=== PATIENT | male | born 1965 | race Asian ===

== ENCOUNTER 2020-06-03 04:00 | Inpatient (IN) | payer OTHER ==
[~2020-06-03] VITALS: Ht 175.3 cm; Wt 96.8 kg
[2020-06-03 04:00] VITALS: BP 124/57; TEMP 102.1
[2020-06-03 04:30] VITALS: BP 111/72
[2020-06-03 04:42] LABS: PLATELET COUNT 194 K/uL (142-355)
[2020-06-03 04:55] LABS: POTASSIUM 4.2 mmol/L (3.6-5.2)
[2020-06-03 05:00] VITALS: BP 105/40
[2020-06-03 06:22] VITALS: BP 106/67; TEMP 99.8; Ht 175.3 cm; Wt 96.8 kg
[2020-06-03] MEDS ORDERED: CYAN10009 IM (06:40)
[2020-06-03] MEDS ORDERED: IRON325 MG PO (06:41)
[2020-06-03 08:00] VITALS: BP 113/66; TEMP 98.5
[2020-06-03 12:00] VITALS: BP 124/53; TEMP 98.8; TEMP 98.9
[2020-06-03] MEDS ORDERED: AZIT250T3 PO (13:52)
[2020-06-03] MEDS ORDERED: ZINC220 MG PO (13:53)
[2020-06-03] MEDS ORDERED: VITAMIN C TR PO (13:54)
[2020-06-03] MEDS ORDERED: VITAMIN D1000 UNI1 PO (13:55)
[2020-06-03] MEDS ORDERED: MEDROL DOSEPAK4 MG PO (13:57)
[2020-06-03] MEDS ORDERED: ALBU90AE13 INH (13:59)
[2020-06-03] MEDS ORDERED: PEPCID20 MG PO (14:09)
== END 2020-06-03 16:00 | disposition home or self-care (01) | DRG 177 ==
LOC: ED 04:11 → MED/SURG 05:18
PROVIDERS: ADMIT Emergency Medicine Emergency Medical Services; ATTEND Internal Medicine
DX: U07.1 COVID-19 (principal); J18.8 Other pneumonia, unspecified organism; D50.8 Other iron deficiency anemias
CPT/HCPCS: 36415; 80053; 83605; 85027; 87635; 94760; 96365; 96375; 99284; J0456; J1100; U0003

== ENCOUNTER 2020-06-04 02:08 | Observation (INO) | payer OTHER ==
[~2020-06-04] VITALS: Ht 175.3 cm; Wt 98.1 kg
[2020-06-04] VITALS (11 sets, daily range): BP systolic 126–145; BP diastolic 69–85; TEMP 97.9–98.8; Ht 175.3 cm; Wt 98.1 kg
[~2020-06-04 02:08] MED LIST: ALBU90AE13 INH; AZIT250T3 PO; CYAN10009 IM; IRON325 MG PO; MEDROL DOSEPAK4 MG PO; PEPCID20 MG PO; VITAMIN C TR PO; VITAMIN D1000 UNI1 PO; ZINC220 MG PO
[2020-06-04 02:42] LABS: PLATELET COUNT 208 K/uL (142-355)
[2020-06-05] VITALS: BP 132/76; TEMP 98.4
[2020-06-05 03:52] VITALS: BP 149/88; TEMP 98.7
[2020-06-05 05:48] LABS: PLATELET COUNT 226 K/uL (142-355)
[2020-06-05 06:32] LABS: POTASSIUM 4.5 mmol/L (3.6-5.2)
[2020-06-05 08:00] VITALS: BP 132/72; TEMP 98.6
[2020-06-05] MEDS ORDERED: PULMICORT180 MCG/AC INH (12:29)
[2020-06-05] MEDS ORDERED: GUAI600T70 PO (12:32)
== END 2020-06-05 14:48 | disposition home or self-care (01) ==
LOC: ED 02:08 → MED/SURG 04:30
PROVIDERS: ADMIT Emergency Medicine Emergency Medical Services; ATTEND Internal Medicine
DX: U07.1 COVID-19 (principal); J18.8 Other pneumonia, unspecified organism; N28.9 Disorder of kidney and ureter, unspecified
CPT/HCPCS: 36415; 36600; 80053; 82805; 83605; 84484; 85027; 85379; 85610; 86140; 93005; 94760; 96360; 96365; 96366; 96367; 96372; 96375; 99220; 99284; G0378; J0456; J0696; J1100; J1650; J2930

== ENCOUNTER 2020-06-07 02:24 | Emergency (ER) | payer OTHER ==
[~2020-06-07] VITALS: Ht 175.3 cm; Wt 98.0 kg
[2020-06-07 02:24] VITALS: TEMP 98.3
[~2020-06-07 02:24] MED LIST changes: +GUAI600T70 PO; +PULMICORT180 MCG/AC INH
[2020-06-07 03:13] LABS: POTASSIUM 4.4 mmol/L (3.6-5.2)
[2020-06-07 03:17] LABS: PLATELET COUNT 284 K/uL (142-355)
[2020-06-07 05:04] VITALS: BP 103/65
== END 2020-06-07 05:18 | disposition home or self-care (01) ==
LOC: ED 02:24
PROVIDERS: Family Medicine
DX: U07.1 COVID-19 (principal); J12.89 Other viral pneumonia; F41.8 Other specified anxiety disorders
CPT/HCPCS: 80053; 85007; 85027; 96365; 96376; 99284; J0696; J2930